=== PATIENT | female | born 1985 | race Caucasian/White ===

== ENCOUNTER → 2016-06-22 | Outpatient (CLI) | payer MEDICAID ==
[~2016-06-22] MED LIST: AMOXICILLIN500 M1 PO; COLACE100 MG PO; FLEXERIL10 MG PO; GUMMIES CHILDR1 EACH PO; HYDROCODON-ACE1 EAC6 PO; IBUPROFEN800 MG PO; LEVAQUIN750 MG PO; MIRALAX17 GM PO; MOTRIN800 MG PO; NEURONTIN300 MG PO; NORCO 5-325 MG1 TAB PO; Neurontin PO; VALIUM5 MG PO; XANAX0.5 MG PO; XARELTO10 MG PO
--- NOTE | ~2016-06-22 | NDGEN ---
PATIENT'S NAME: MATTY MCGUIRE [facility] AGE: 31 Y [address] ROOM: [place] [id number] LOCATION: [facility] ADMIT DATE: 06/22/2016 Neurodiagnostics DISCHARGE DATE: FAMILY PHYSICIAN: Dagoberto Aquino MD ATTENDING PHYSICIAN: MONICO PITTS PROCEDURE: DATE OF PROCEDURE: 06/22/2016 EMG Nerve Conduction Study Of Lower Extremities INDICATION: This is a 31-year-old female patient who has had multiple back surgeries associated with lumbar spinal stenosis. She also has pain in the right groin. The reason for this nerve conduction study was to rule out any possibility of a focal neuropathy of the bilateral lower extremities, as the patient does have also pain into the legs. She has vague complaints of weakness, but on physical exam today, she had full motor power of the femoral routed muscles on leg extension and hip flexion. The sciatic root muscles on lower leg flexion, dorsiflexion, plantar flexion, and eversion of the feet were all within normal limits. Nerve conduction studies were performed in the lower extremities including looking at the left and right peroneal and tibial motor nerves and the sural sensory nerves on the left and right. There were normal motor onset latencies, amplitudes, and nerve conduction velocity seen in the bilateral lower extremities. Also, the left and right sural sensory nerves were also within normal limits with normal amplitudes and peak onset latencies. F-wave studies of the lower extremities were also within normal limits. Next, needle EMG was placed into the testing randomly into the right leg, the leg that was most symptomatic in the patient's pain. The needle was placed into the vastus lateralis, tibialis anterior, medial gastrocnemius, and the medial gastrocnemius muscles. There was normal motor unit action potential firing in all these muscles. Furthermore, there was no evidence of any abnormal spontaneous electrical activity such as positive sharp waves or fibrillation potentials to suggest that there was any evidence of a neuropathic process. The motor units were of normal sizes and did not reveal any polyphasia. What was noted was at rest, there were extreme amounts of muscle spasming seen in all the muscles tested. IMPRESSION: There were normal nerve conduction studies of the bilateral lower extremities that do not support evidence of a polyneuropathy or a focal mononeuropathy of the lower extremities. Furthermore, needle testing of the PATIENT'S NAME: MATTY MCGUIRE [facility] AGE: 31 Y [address] ROOM: [place] [id number] LOCATION: [facility] ADMIT DATE: 06/22/2016 Neurodiagnostics DISCHARGE DATE: FAMILY PHYSICIAN: Dagoberto Aquino MD ATTENDING PHYSICIAN: MONICO PITTS lower extremities did not show any evidence to support a lumbar radiculopathy. The patient's pain at the right groin seems to be more mechanical and possibly a stretch injury at the inguinal ligament or elsewhere. However, there did not appear to be any evidence to support a femoral neuropathy based upon the testing today as well as the presence of an intact reflex and power testing of the femoral-routed muscles. Again of most note, the patient does have evidence for spasms of the lower extremities and may likely explain the patient's overall symptoms of pain/pain with spasms of the lower back and into the legs and maybe even explain some of the numbness and tingling that she experiences. A clinical correlation is thus advised. MD PRATIBHA BERG/hiram /[id number] dtt: 07/07/16 1324 , HAM LOPEZ dtd: 06/22/16 2122
== END | disposition disaster alternative care site (69) ==
LOC: GNEU 15:51
DX: M25.551 Pain in right hip (principal); Z98.890 Other specified postprocedural states

== ENCOUNTER → 2016-08-03 | Outpatient (CLI) | payer MEDICAID | END | disposition disaster alternative care site (69) | LOC: GPOC 07-30 10:00 | PROC: 3E0S33Z Introduction of Anti-inflammatory into Epidural Space, Percutaneous Approach (ICD-10-PCS; principal; 2016-08-03) | PROC: 3E0S3BZ Introduction of Anesthetic Agent into Epidural Space, Percutaneous Approach (ICD-10-PCS; 2016-08-03) | DX: M48.07 Spinal stenosis, lumbosacral region (principal); M25.559 Pain in unspecified hip; M54.9 Dorsalgia, unspecified; R20.0 Anesthesia of skin | CPT/HCPCS: J1040 ==

== ENCOUNTER → 2016-10-20 | Outpatient (CLI) | payer MEDICAID | END | disposition disaster alternative care site (69) | LOC: GRAD 10-06 13:00 | DX: Z01.818 Encounter for other preprocedural examination (principal); M48.07 Spinal stenosis, lumbosacral region; M99.83 Other biomechanical lesions of lumbar region; M54.16 Radiculopathy, lumbar region; M54.30 Sciatica, unspecified side; M54.9 Dorsalgia, unspecified; R20.0 Anesthesia of skin ==